=== PATIENT | male | born 1995 | race Caucasian/White ===

== ENCOUNTER 2017-02-06 17:37 | Emergency (ER) | payer OTHER ==
[~2017-02-06] VITALS: Ht 172.7 cm; Wt 75.4 kg
[2017-02-06 17:45] VITALS: TEMP 36.9; Ht 172.7 cm; Wt 75.4 kg
--- NOTE | 2017-02-06 19:13 | DIAGNOSTIC IMAGING REPORT ---
BILATERAL LOWER EXTREMITY VENOUS DOPPLER CLINICAL HISTORY: Bilateral calf pain. Recent travel to [place] COMPARISON STUDY: No previous studies for comparison. TECHNIQUE: Sonography of the deep venous system of the bilateral lower extremities was performed. Compression and augmentation were evaluated. FINDINGS: The bilateral common femoral, superficial femoral and popliteal veins were compressible. Augmentation was normal. Flow was shown within the deep calf vessels. A few benign-appearing left inguinal lymph nodes were incidentally noted. IMPRESSION: No evidence of deep venous thrombus within the bilateral lower extremities. Electronically signed by: Gabe López M.D. 02/06/2017 7:12 PM Dictated Date/Time: 02/06/2017 7:11 PM
[2017-02-06 19:38] VITALS: BP 129/75; PULSE 97; O2SAT 97
--- NOTE | 2017-02-06 22:23 | EMERGENCY ROOM VISIT NOTE ---
History First contact with patient: 18:03 Chief Complaint: CALF PAIN Stated Complaint: INTENSE PAIN IN THE CALFS History of Present Illness The patient is a 21 year old male who presents to the Emergency Room with complaints of bilateral calf pain for the past 2-3 weeks. The patient does not report injury or trauma. His symptoms do seem to worsen with ambulation. The patient was recently in [facility] for spring. The patient does not have fever or chills. No chest pain, chest tightness, or shortness of breath. No redness or swelling noted in the lower extremities. He does not have a history of DVT. No distinct injury or trauma. He is not taking anything over- the-counter for his discomfort which she currently rates a 1/10. Review of Systems More than 10 systems were reviewed and otherwise negative with the exception of history of present illness. Past Medical/Surgical History No chronic medical disease Family History No pertinent family history Social History Smoking Status: Current Every Day Smoker Occupation Status: [employer] student Current/Historical Medications No Active Prescriptions or Reported Meds Allergies Coded Allergies: No Known Allergies (Unverified , 07/22/16) Physical Exam Vital Signs Date Time Temp Pulse Resp B/P Pulse Ox O2 Delivery O2 Flow Rate FiO2 02/06/17 19:38 97 18 129/75 97 02/06/17 17:45 36.9 97 16 114/69 96 Room Air Pain Rating (0-10): 0 Physical Exam VITALS: Vitals are noted on the nurse's note and reviewed by myself. Vital signs stable. GENERAL: Well-developed, well-nourished, male, who is in no acute distress and resting comfortably. Patient is cooperative with the examination. HEAD: Normocephalic atraumatic. HEART: Regular rate and rhythm without murmurs gallops or rubs. LUNGS: Clear to auscultation bilaterally without wheezes, rales or rhonchi. No retractions or accessory muscle use. ABDOMEN: Positive normal bowel sounds x 4. Soft, nontender, without masses or organomegaly. No guarding or rebound tenderness. MUSCULOSKELETAL: No muscle atrophy, erythema, or edema noted. Full range of motion without joint tenderness in all extremities. Negative Homans sign bilateral. NEURO: Patient was alert and oriented to person place and time. CN II through XII grossly intact. Medical Decision & Procedures ER Provider Diagnostic Interpretation: BILATERAL LOWER EXTREMITY VENOUS DOPPLER CLINICAL HISTORY: Bilateral calf pain. Recent travel to [place] COMPARISON STUDY: No previous studies for comparison. TECHNIQUE: Sonography of the deep venous system of the bilateral lower extremities was performed. Compression and augmentation were evaluated. FINDINGS: The bilateral common femoral, superficial femoral and popliteal veins were compressible. Augmentation was normal. Flow was shown within the deep calf vessels. A few benign-appearing left inguinal lymph nodes were incidentally noted. IMPRESSION: No evidence of deep venous thrombus within the bilateral lower extremities. ED Course Physical exam and history were performed. Nursing notes and EMR were reviewed. Patient appears to have bilateral calf pain without injury or trauma. The patient does have a recent travel history. Ultrasound of the bilateral lower extremities was performed and does not show evidence of acute DVT. Overall the patient appears stable for discharge home. He is to follow with [facility] for further care and management. He was otherwise invited back to the ER with any new, worsening, or concerning symptoms. The chart was completed utilizing [employer] Voice Recognition Software. Grammatical errors, random word insertions, pronoun errors, and incomplete sentences are an occasional consequence of this system due to software limitations, ambient noise, and hardware issues. Any formal questions or concerns about the content, text, or information contained within the body of this dictation should be directly addressed to the provider for clarification. . Medical Decision Differential diagnosis: Etiologies such as DVT, musculoskeletal, infection, joint effusion, trauma, lymphedema, idiopathic, CHF, as well as others were entertained.. Impression Primary Impression: Bilateral calf pain Departure Information Dispostion Home / Self-Care Condition GOOD Prescriptions No Active Prescriptions or Reported Meds Forms HOME CARE DOCUMENTATION FORM, IMPORTANT VISIT INFORMATION Patient Instructions [facility] Additional Instructions You were seen and evaluated today on an emergency basis only. This is not a substitute for, or an effort to provide, complete comprehensive medical care. It is not possible to recognize and treat all injuries or illnesses in a single emergency department visit. For this reason it is recommended that you followup with [facility] next week for ongoing care and evaluation. Drink plenty fluids and remain well hydrated. For baseline pain relief you may alternate ibuprofen and acetaminophen every 4 hours for pain control. Take 600 mg ibuprofen (Advil) and then 4 hours later take 1000 mg acetaminophen (Tylenol). Do not take more than 3000 mg acetaminophen in a single day. You are welcome to return to the emergency department anytime with new, worsening, or concerning symptoms.
== END 2017-02-06 19:38 | disposition home or self-care (01) ==
LOC: C.EDB 17:38 → C.EDD 19:38
DX: M79.661 Pain in right lower leg (principal); M79.662 Pain in left lower leg; F17.200 Nicotine dependence, unspecified, uncomplicated

== ENCOUNTER 2017-12-09 20:25 | Emergency (ER) | payer OTHER ==
[~2017-12-09] VITALS: Ht 165.1 cm; Wt 73.0 kg
[2017-12-09 20:44] VITALS: TEMP 36.9; Ht 165.1 cm; Wt 73.0 kg
[2017-12-09] MEDS ORDERED: LAMO25TA PO (21:51)
[2017-12-09 22:04] LABS: BASO % 0.3 %; BASO ABS # 0.03 K/uL (0-0.2); EOS ABS # 0.18 K/uL (0-0.5); HEMATOCRIT 49.5 % (42-52); HEMOGLOBIN 17.2 g/dL (14.0-18.0); IG# 0.03 K/uL (0.00-0.02); LYMPH % 27.9 %; LYMPH ABS # 2.49 K/uL (1.2-3.4); MEAN CELL VOLUME 89.5 fL (80-100); MEAN CORPUSCULAR HEMOGLOBIN 31.1 pg (25-34); MEAN CORPUSCULAR HGB CONC 34.7 g/dl (32-36); MEAN PLATELET VOLUME 10.7 fL (7.4-10.4); MONO % 11.3 %; MONO ABS # 1.01 K/uL (0.11-0.59); NEUT % 58.2 %; NEUT ABS # 5.17 K/uL (1.4-6.5); PLATELET COUNT 238 K/uL (130-400); RED CELL DISTRIBUTION WIDTH CV 13.5 % (11.5-14.5); RED CELL DISTRIBUTION WIDTH SD 44.2 fL (36.4-46.3); WHITE BLOOD COUNT 8.91 K/uL (4.8-10.8)
[2017-12-09 22:13] LABS: ALBUMIN 4.6 gm/dl (3.4-5.0); CALCIUM 9.6 mg/dl (8.5-10.1); CREATININE 0.89 mg/dl (0.60-1.40)
[2017-12-09 22:16] LABS: TOTAL PROTEIN 8.5 gm/dl (6.4-8.2)
[2017-12-09] MEDS ORDERED: KETOROLAC TROMETHAMINE 30 MG/ML VIAL IV STA (22:24)
[2017-12-09] MEDS ORDERED: SODIUM CHLORIDE 0.9% 1000ML 1,000 ML IV ONE (22:30)
--- NOTE | 2017-12-09 23:01 | DIAGNOSTIC IMAGING REPORT ---
ULTRASOUND RIGHT UPPER QUADRANT ABDOMEN CLINICAL HISTORY: Postprandial abdominal pain. COMPARISON STUDY: No priors. TECHNIQUE: Real-time, grayscale, and color flow sonography of the right upper quadrant of the abdomen was performed. Images are reviewed in the transverse and longitudinal planes. FINDINGS: Liver: The liver is normal in size and echotexture. There is no intrahepatic biliary ductal dilatation. The main portal vein is patent. Gallbladder: The gallbladder is mildly contracted and normal in appearance. No gallstones are identified. There is no gallbladder wall thickening or pericholecystic fluid. A sonographic Licona's sign is reportedly absent. The common bile duct measures up to 0.4 cm in diameter. Pancreas: Not well visualized due to overlying bowel gas. Right kidney: Survey images of the right kidney demonstrate normal size and echotexture. There is no hydronephrosis. Ascites: None. IMPRESSION: Unremarkable sonographic assessment of the right upper quadrant. No gallstones are identified. Electronically signed by: Skyler West M.D. 12/09/2017 10:59 PM Dictated Date/Time: 12/09/2017 10:58 PM
[2017-12-09 23:35] VITALS: BP 107/63; PULSE 64; O2SAT 96
[2017-12-09] MEDS ORDERED: PANT40TA PO (23:35)
--- NOTE | 2017-12-10 06:41 | DIAGNOSTIC IMAGING REPORT ---
PA CHEST RADIOGRAPH AND UPRIGHT AND SUPINE AP RADIOGRAPHS OF THE ABDOMEN CLINICAL HISTORY: Abdominal pain after eating. COMPARISON STUDY: No previous studies for comparison. FINDINGS: Lung volumes are normal. Lungs are clear. No pneumothorax or pleural effusion is noted. Cardiac size is normal. Mediastinal contours are normal. There is no evidence for pulmonary edema. There is no free air. The bowel gas pattern is normal. Visualized skeletal structures are unremarkable. IMPRESSION: 1. No free air or evidence of bowel obstruction. 2. No acute cardiopulmonary findings. Electronically signed by: Gabe López M.D. 12/10/2017 6:40 AM Dictated Date/Time: 12/10/2017 6:39 AM
--- NOTE | 2017-12-10 07:12 | EMERGENCY ROOM VISIT NOTE ---
History First contact with patient: 22:16 Chief Complaint: ABDOMINAL PAIN Stated Complaint: STOMACH PAIN/ESCESSIVE GAS Nursing Triage Summary: Pt presents with lower abd pain x 1-1.5 weeks, worse after eating. "After I eat there is a lot of gas and I have to use the restroom then the pain subsides." Denies n/v. History of Present Illness The patient is a 22 year old male who presents to the Emergency Room with complaints of generalized abdominal pain that worsens after eating for the past 10 days. The patient states that he has a gassy cramping like sensation throughout his abdomen, after which he has to use the bathroom. This does improve his symptoms. He is not nauseated or with vomiting. No fevers or chills. He has not taken anything [id number] for his discomfort. His pain is currently rated a 1/10. He does not have history of abdominal surgery. Review of Systems More than 10 systems were reviewed and otherwise negative with the exception of history of present illness. Past Medical/Surgical History No chronic medical disease Family History No pertinent family history Social History Smoking Status: Former Smoker Occupation Status: [employer] student Current/Historical Medications Scheduled Lamotrigine (Lamictal), 25 MG PO DAILY Pantoprazole (Protonix), 40 MG PO DAILY Physical Exam Vital Signs Date Time Temp Pulse Resp B/P (MAP) Pulse Ox O2 Delivery O2 Flow Rate FiO2 12/09/17 23:35 64 16 107/63 96 Room Air 12/09/17 22:10 65 12/09/17 22:07 61 18 94/74 96 Room Air 12/09/17 20:44 36.9 104 18 126/76 96 Room Air Physical Exam VITALS: Vitals are noted on the nurse's note and reviewed by myself. Vital signs stable. GENERAL: Well-developed, well-nourished, male, who is in no acute distress and resting comfortably. Patient is cooperative with the examination. NECK: Supple without nuchal rigidity. No lymphadenopathy. No thyromegaly. Cervical spine is nontender. HEART: Regular rate and rhythm without murmurs gallops or rubs. LUNGS: Clear to auscultation bilaterally without wheezes, rales or rhonchi. No retractions or accessory muscle use. ABDOMEN: Positive normal bowel sounds x 4. Soft, nontender, without masses or organomegaly. No guarding or rebound tenderness. MUSCULOSKELETAL: No muscle atrophy, erythema, or edema noted. Full range of motion without joint tenderness in all extremities. Medical Decision & Procedures ER Provider Diagnostic Interpretation: PA CHEST RADIOGRAPH AND UPRIGHT AND SUPINE AP RADIOGRAPHS OF THE ABDOMEN CLINICAL HISTORY: Abdominal pain after eating. COMPARISON STUDY: No previous studies for comparison. FINDINGS: Lung volumes are normal. Lungs are clear. No pneumothorax or pleural effusion is noted. Cardiac size is normal. Mediastinal contours are normal. There is no evidence for pulmonary edema. There is no free air. The bowel gas pattern is normal. Visualized skeletal structures are unremarkable. IMPRESSION: 1. No free air or evidence of bowel obstruction. 2. No acute cardiopulmonary findings. ULTRASOUND RIGHT UPPER QUADRANT ABDOMEN CLINICAL HISTORY: Postprandial abdominal pain. COMPARISON STUDY: No priors. TECHNIQUE: Real-time, grayscale, and color flow sonography of the right upper quadrant of the abdomen was performed. Images are reviewed in the transverse and longitudinal planes. FINDINGS: Liver: The liver is normal in size and echotexture. There is no intrahepatic biliary ductal dilatation. The main portal vein is patent. Gallbladder: The gallbladder is mildly contracted and normal in appearance. No gallstones are identified. There is no gallbladder wall thickening or pericholecystic fluid. A sonographic Licona's sign is reportedly absent. The common bile duct measures up to 0.4 cm in diameter. Pancreas: Not well visualized due to overlying bowel gas. Right kidney: Survey images of the right kidney demonstrate normal size and echotexture. There is no hydronephrosis. Ascites: None. IMPRESSION: Unremarkable sonographic assessment of the right upper quadrant. No gallstones are identified. Laboratory Results 12/09/17 21:40 Red Blood Count 5.53, Mean Corpuscular Volume 89.5, Mean Corpuscular Hemoglobin 31.1, Mean Corpuscular Hemoglobin Concent 34.7, Mean Platelet Volume 10.7, Neutrophils (%) (Auto) 58.2, Lymphocytes (%) (Auto) 27.9, Monocytes (%) (Auto) 11.3, Eosinophils (%) (Auto) 2.0, Basophils (%) (Auto) 0.3, Neutrophils # (Auto ) 5.17, Lymphocytes # (Auto) 2.49, Monocytes # (Auto) 1.01, Eosinophils # (Auto ) 0.18, Basophils # (Auto) 0.03 12/09/17 21:40 Test 12/09/17 21:40 White Blood Count 8.91 K/uL (4.8-10.8) Red Blood Count 5.53 M/uL (4.7-6.1) Hemoglobin 17.2 g/dL (14.0-18.0) Hematocrit 49.5 % (42-52) Mean Corpuscular Volume 89.5 fL (80-100) Mean Corpuscular Hemoglobin 31.1 pg (25-34) Mean Corpuscular Hemoglobin Concent 34.7 g/dl (32-36) Platelet Count 238 K/uL (130-400) Mean Platelet Volume 10.7 fL (7.4-10.4) Neutrophils (%) (Auto) 58.2 % Lymphocytes (%) (Auto) 27.9 % Monocytes (%) (Auto) 11.3 % Eosinophils (%) (Auto) 2.0 % Basophils (%) (Auto) 0.3 % Neutrophils # (Auto) 5.17 K/uL (1.4-6.5) Lymphocytes # (Auto) 2.49 K/uL (1.2-3.4) Monocytes # (Auto) 1.01 K/uL (0.11-0.59) Eosinophils # (Auto) 0.18 K/uL (0-0.5) Basophils # (Auto) 0.03 K/uL (0-0.2) RDW Standard Deviation 44.2 fL (36.4-46.3) RDW Coefficient of Variation 13.5 % (11.5-14.5) Immature Granulocyte % (Auto) 0.3 % Immature Granulocyte # (Auto) 0.03 K/uL (0.00-0.02) Urine Color YELLOW Urine Appearance CLEAR (CLEAR) Urine pH 7.0 (4.5-7.5) Urine Specific [place] 1.014 (1.000-1.030) Urine Protein NEG (NEG) Urine Glucose (UA) NEG (NEG) Urine Ketones NEG (NEG) Urine Occult Blood NEG (NEG) Urine Nitrite NEG (NEG) Urine Bilirubin NEG (NEG) Urine Urobilinogen NEG (NEG) Urine Leukocyte Esterase NEG (NEG) Anion Gap 7.0 mmol/L (3-11) Est Creatinine Clear Calc Drug Dose 115.2 ml/min Estimated GFR () 142.7 Estimated GFR (Non- 123.1 BUN/Creatinine Ratio 15.5 (10-20) Calcium Level 9.6 mg/dl (8.5-10.1) Total Bilirubin 0.5 mg/dl (0.2-1) Aspartate Amino Transf (AST/SGOT) 17 U/L (15-37) Alanine Aminotransferase (ALT/SGPT) 41 U/L (12-78) Alkaline Phosphatase 78 U/L (45-117) Total Protein 8.5 gm/dl (6.4-8.2) Albumin 4.6 gm/dl (3.4-5.0) Globulin 3.9 gm/dl (2.5-4.0) Albumin/Globulin Ratio 1.2 (0.9-2) Lipase 95 U/L (73-393) Medications Administered Medications (Trade) Dose Ordered Sig/Wandy Route Start Time Stop Time Status Last Admin Dose Admin Sodium Chloride 1,000 ml @ 999 mls/hr Q1H1M ONCE IV 12/09/17 22:30 12/09/17 23:30 DC 12/09/17 22:32 999 MLS/HR Ketorolac Tromethamine (Toradol Inj) 30 mg NOW STAT IV 12/09/17 22:24 12/09/17 22:25 DC 12/09/17 22:33 30 MG ED Course Physical exam and history were performed. Nursing notes, EMR, and Medication List were personally reviewed. Patient appears to have reports of postprandial abdominal pain. This pain is diffuse and is not reproducible on palpation. IV access was established and labs were obtained. Patient was hydrated and medicated as above. X-rays and ultrasound were performed. The patient's blood work is as above and was reviewed. He does not have a significantly elevated white blood cell count, gross anemia, bandemia, or significant electrolyte imbalance. Lipase and transaminases are nondiagnostic. X-ray does not show significant acute findings. Ultrasound report shows no significant biliary etiology of the patient's symptoms. Overall the patient appears well for discharge home. He does not appear to have an acute life-threatening process. His repeat abdominal exam continues without significant tenderness or concern for acute surgical abdomen. The patient was given discharge instructions as below and otherwise invited back to the ER with any new, worsening, or concerning symptoms. The chart was completed utilizing [employer] Voice Recognition Software. Grammatical errors, random word insertions, pronoun errors, and incomplete sentences are an occasional consequence of this system due to software limitations, ambient noise, and hardware issues. Any formal questions or concerns about the content, text, or information contained within the body of this dictation should be directly addressed to the provider for clarification. . Medical Decision Differential diagnosis: Etiologies such as appendicitis, diverticulitis, PUD, biliary pathology, UTI, pancreatitis, obstruction, mesenteric ischemia, aortic pathology, infections, inflammatory bowel disease, renal colic, as well as others were entertained. Impression Primary Impression: Abdominal pain Departure Information Dispostion Home / Self-Care Condition GOOD Prescriptions Pantoprazole (Protonix) 40 Mg Tab 40 MG PO DAILY for 14 Days, #14 TAB Prov: David Rosario PA-C 12/09/17 Referrals No Doctor, Assigned [facility] (PCP) Forms HOME CARE DOCUMENTATION FORM, IMPORTANT VISIT INFORMATION Patient Instructions My [facility] Additional Instructions You were seen and evaluated today on an emergency basis only. This is not a substitute for, or an effort to provide, complete comprehensive medical care. It is not possible to recognize and treat all injuries or illnesses in a single emergency department visit. For this reason it is recommended that you followup with your primary care physician in the next 2-3 days for recheck. You may also wish to follow with gastroenterology regarding her symptoms. Take Protonix 40 mg daily for the next 2 weeks. You are welcome to return to the emergency department anytime with new, worsening, or concerning symptoms.
== END 2017-12-09 23:37 | disposition home or self-care (01) ==
LOC: C.EDB 20:26 → C.EDA 23:37
DX: R10.9 Unspecified abdominal pain (principal); Z87.891 Personal history of nicotine dependence

== ENCOUNTER 2018-03-04 17:46 | Emergency (ER) | payer OTHER ==
[~2018-03-04] VITALS: Ht 165.1 cm; Wt 73.8 kg
[~2018-03-04 17:46] MED LIST: LAMO25TA PO
[2018-03-04 17:50] VITALS: TEMP 37.2; Ht 165.1 cm; Wt 73.8 kg
[2018-03-04] MEDS ORDERED: LIDOCAINE/EPINEPHRINE 1% 20 ML VIAL INFIL STA (17:58)
[2018-03-04] MEDS ORDERED: SULF1TAB92 PO (18:54)
--- NOTE | 2018-03-04 19:13 | DIAGNOSTIC IMAGING REPORT ---
RIGHT BUTTOCK ULTRASOUND CLINICAL HISTORY: Gluteal edema. Possible abscess. COMPARISON STUDY: No previous studies for comparison. FINDINGS: Note is made of a 2.5 x 1.7 x 2.3 cm complex subcutaneous fluid collection of the medial right buttock. This contains no color flow. Internal echoes are noted. This is suggestive of an abscess. IMPRESSION: 2.5 x 1.7 x 2.3 cm medial right buttock subcutaneous complex fluid collection suggestive of an abscess. Electronically signed by: Gabe López M.D. 03/04/2018 7:11 PM Dictated Date/Time: 03/04/2018 7:10 PM
--- NOTE | 2018-03-04 20:09 | EMERGENCY ROOM VISIT NOTE ---
History First contact with patient: 17:54 Chief Complaint: WOUND INFECTION Stated Complaint: ABSCESS, PAIN SWELLING Nursing Triage Summary: patient has had cyst above buttocks for 1 week. has been on bactrim since friday. has been using warm compresses without relief. History of Present Illness The patient is a 22 year old male who presents to the Emergency Room via private vehicle with complaints of "abscess, pain/swelling". The patient states 1 week ago he noticed that he had some swelling/pain at the superior gluteal region. He has no history of this in the past. He rates the pain as an 8-9/10 which has been increasing. No fevers or chills. No medical ailments. Review of Systems A complete 6-point Review of Systems was discussed with the patient, with pertinent positives and negatives listed in the History of Present Illness. All remaining Review of Systems questions can be considered negative unless otherwise specified. Past Medical/Surgical History No pertinent. Family History No pertinent. Social History Smoking Status: Current Every Day Smoker Occupation Status: [employer] student Current/Historical Medications Scheduled Trimethoprim/Sulfamethoxazole (Bactrim 400MG/80MG), 1 TAB PO Q12H Physical Exam Vital Signs Date Time Temp Pulse Resp B/P (MAP) Pulse Ox O2 Delivery O2 Flow Rate FiO2 03/04/18 20:14 76 14 110/76 98 Room Air 03/04/18 19:06 74 16 105/50 97 Room Air 03/04/18 17:50 37.2 93 18 125/79 95 Room Air Physical Exam VITAL SIGNS - Vital signs and nursing notes were reviewed. Stable. GENERAL -22-year-old male appearing his stated age who is in no acute distress. Communicates well with provider and answers questions appropriately. SKIN -at the superior left intergluteal cleft there is a 2.5 cm x 2.5 cm slightly erythematous and edematous region that is fluctuant. HEAD - NC/AT. EYES - PERRL with EOMI bilaterally. Sclera anicteric. Palpebral conjunctiva pink and moist with no injection noted. EARS - No deformities of external structures noted on gross examination bilaterally. NOSE - Midline and without cyanosis. No epistaxis or purulent drainage noted. ABDOMEN - Abdominal contour normal without pulsations or visible masses. BS normoactive all four quadrants. No tenderness, palpable masses, hepatosplenomegaly, or ascites noted. Medical Decision & Procedures ER Provider Diagnostic Interpretation: RIGHT BUTTOCK ULTRASOUND CLINICAL HISTORY: Gluteal edema. Possible abscess. COMPARISON STUDY: No previous studies for comparison. FINDINGS: Note is made of a 2.5 x 1.7 x 2.3 cm complex subcutaneous fluid collection of the medial right buttock. This contains no color flow. Internal echoes are noted. This is suggestive of an abscess. IMPRESSION: 2.5 x 1.7 x 2.3 cm medial right buttock subcutaneous complex fluid collection suggestive of an abscess. Electronically signed by: Gabe López M.D. 03/04/2018 7:11 PM Dictated Date/Time: 03/04/2018 7:10 PM Procedure I examined the patient. Verbal consent was obtained to perform the procedure. After saline and Betadine cleansing and 3 mL of 1% buffered lidocaine with epinephrine anesthesia, the abscess was incised with a number 11 scalpel blade. A large amount of purulent material was released with more expressed by pressure. A swab was obtained for culture. The abscess cavity was further probed with a needle carry all driver and the deep pocket expressed. The abscess cavity was then copiously irrigated with sterile saline under pressure. The area was then packed with bacitracin soaked packing. The area was cleaned with sterile saline and dressed with bacitracin and a bulky bandage. The patient tolerated the procedure well. Medical Decision Patient was seen and evaluated as above in room D4. Review was performed of nursing notes and vital signs. After obtaining a thorough history and physical examination the above work up was performed. There is a left-sided gluteal abscess and an ultrasound obtained. Procedure performed please see above. Patient provided consent. Culture obtained. He tolerated this well. He is to return in 2 days for recheck. He was started on Bactrim and he is to continue with culture pending. The patient was educated upon management, had questions answered prior to discharge, and was discharged home in good condition. In the evaluation and treatment of this patient the following differential diagnoses were entertained: Perirectal abscess, perianal abscess, gluteal abscess, among others. Impression Primary Impression: Pilonidal abscess Departure Information Dispostion Home / Self-Care Condition GOOD Referrals Jama Lorenzana M.D. (PCP) Patient Instructions My [facility] Additional Instructions You were seen in the emergency department for a pilonidal abscess. This was drained. I recommend keeping the area clean, and showering but please place the bandage over daily. Please return in 48 hours for packing removal and wound recheck. Please continue the Bactrim you were are already given. Please return with any new/concerning symptoms.
[2018-03-04 20:14] VITALS: BP 110/76; PULSE 76; O2SAT 98
--- NOTE | 2018-03-06 16:45 | Pharmacy Progress Note ---
ED Pharmacist Culture FollowUp Date of Service: Mar 06, 2018. Patient with Pilonidal abscess growing gray sensitive E. coli. Per provider note patient had already been prescribed bactrim (1 SS tab BID). I confirmed with patient that he had been taking this since 02/28. The patient also stated he was returning to the ED tonight for packing removal .Discussed case with Dr. Schofield. Depending on how the wound appears on re-examination, may need to increase the bactrim dose to 1 DS tab BID.
== END 2018-03-04 20:15 | disposition home or self-care (01) ==
LOC: C.EDB 17:48 → C.EDD 20:15
DX: L05.01 Pilonidal cyst with abscess (principal); F17.200 Nicotine dependence, unspecified, uncomplicated

== ENCOUNTER 2018-03-06 20:04 | Emergency (ER) | payer OTHER ==
[~2018-03-06] VITALS: Ht 165.1 cm; Wt 74.2 kg
[~2018-03-06 20:04] MED LIST changes: -LAMO25TA PO; +SULF1TAB92 PO
[2018-03-06 20:10] VITALS: TEMP 36.8; Ht 165.1 cm; Wt 74.2 kg
[2018-03-06] MEDS ORDERED: LIDOCAINE 1% BUFFERED INJ 5 ML VIAL INFIL ONE (20:30)
--- NOTE | 2018-03-06 20:55 | EMERGENCY ROOM VISIT NOTE ---
ED Visit Note First contact with patient: 20:26 CHIEF COMPLAINT: Pilonidal cyst recheck and packing removal HISTORY OF PRESENT ILLNESS: This 22-year-old male presents to ER for 2 day recheck for a pilonidal cyst abscess which was drained to days ago. He was told to return today for packing removal. The patient states he thinks the packing is still in place. He is taking the antibiotics as prescribed. The patient states that it felt better right after it was drained but then it became more painful again. REVIEW OF SYSTEMS: 6 system review was performed and was negative unless stated otherwise in history of present illness. PMH: The patient is healthy; EMR was reviewed and there are no changes from last ER visit. SOCIAL HISTORY: Patient lives at home. PHYSICAL EXAM: Vital Signs: Were reviewed reviewed Nurse's notes. GENERAL: 22- year-old male appears in no acute distress. MENTAL Status: Alert and oriented 3. BUTTOCKS: There is a palpable firm mass with central fluctuance noted just to the left side of the gluteal crease without active draining. There is no packing in place. There is no opening noted. No EMERGENCY DEPARTMENT COURSE: The patient was evaluated. The patient's culture grew out E. coli. He was placed on Bactrim single strength. The patient has been taking the Bactrim as directed. The patient will need a second I&D since the packing is no longer in place and there is more swelling.. PROCEDURE: I&D of pilonidal cyst abscess The area was prepped with Betadine 3. Anesthesia was obtained by injecting 1% buffered lidocaine. A small incision was made using 11 blade scalpel. A small amount of purulent fluid was expressed. Cavity was swabbed with a Q-tip. A small piece of packing was placed and taped in place. A bandage was placed over top. Patient tolerated procedure well. DIAGNOSIS: Pilonidal cyst-abscess DISCHARGE INSTRUCTIONS AND TREATMENT: Discontinue the single strength Bactrim. Take the new prescription for Bactrim DS twice daily as directed. Tylenol and/ or ibuprofen as needed for pain. Keep the packing in place until recheck in 2 days in ER for packing removal. Current/Historical Medications Scheduled Trimethoprim/Sulfamethoxazole (Bactrim 400MG/80MG), 1 TAB PO Q12H Allergies Coded Allergies: No Known Allergies (Unverified , 03/04/18) Vital Signs Date Time Temp Pulse Resp B/P (MAP) Pulse Ox O2 Delivery O2 Flow Rate FiO2 03/06/18 20:10 36.8 84 18 125/93 96 Room Air Departure Information Referrals Jama Lorenzana M.D. (PCP) [facility] Instructions [facility]
[2018-03-06] MEDS ORDERED: SULF800T23 PO (20:57)
[2018-03-06 21:18] VITALS: BP 127/74; PULSE 76; O2SAT 97
== END 2018-03-06 21:18 | disposition home or self-care (01) ==
LOC: C.EDB 20:07 → C.EDD 21:18
DX: L05.01 Pilonidal cyst with abscess (principal)